=== PATIENT | female | born 1945 | race Caucasian/White ===

== ENCOUNTER 2018-08-21 15:13 | Outpatient (CLI) | payer MEDICARE, BC ==
--- NOTE | 2018-08-21 16:09 | RAD ---
LUMBAR SPINE TWO VIEW: 08/21/18 HISTORY: Follow-up from compression fracture. COMPARISON: None. FINDINGS: There is compression deformity of L3 with 20% anterior height loss. No definite retropulsion. There i s multilevel mild degenerative disc space height loss throughout the lumbar spine. Bones are deminera lized. There appears to be subtle compression deformity of T12 superior end plate, likely chronic. IMPRESSION: Healing L3 superior end plate compression deformity approximately 20% anterior height loss and 30% ce ntral depression without significant retropulsion. Giving lack of comparison examinations, it is unkn own if this is worse than the comparison exam. POS: HOME
== END 2018-08-21 15:14 | disposition home or self-care (01) ==
LOC: TBSIIMAG 15:13
PROVIDERS: ATTEND Neurological Surgery
DX: S32.039D Unspecified fracture of third lumbar vertebra, subsequent encounter for fracture with routine healing (principal)
CPT/HCPCS: 72100